=== PATIENT | female | born 1990 | race Caucasian/White ===

== ENCOUNTER 2022-02-05 21:15 | Inpatient (IN) ==
[2022-02-05 21:34] VITALS: BMI 51.3
[2022-02-05 21:51] LABS: BILIRUBIN,URINE NEGATIVE (NEGATIVE); BLOOD/HEMOGLOBIN,URINE NEGATIVE (NEGATIVE); GLUCOSE, URINE NEGATIVE (NEGATIVE); KETONES,URINE NEGATIVE (NEGATIVE); LEUKOCYTE ESTERASE ,URINE 2+ (NEGATIVE); NITRITES,URINE NEGATIVE (NEGATIVE); PROTEIN,URINE NEGATIVE (NEGATIVE); UROBILINOGEN,URINE NORMAL (NORMAL)
[2022-02-05] MEDS ORDERED: ANCEF VIAL 1 GRAM IVP ONE (21:51)
[2022-02-05] MEDS ORDERED: LR 1,000 ML IV 1,000 ML IV ONE ×3 (21:51→22:36)
[2022-02-05] MEDS ORDERED: TORADOL 30 MG VIAL IVP PRN (21:55)
[2022-02-05] MEDS ORDERED: BENADRYL INJ 50 MG VIAL IVP PRN (21:55)
[2022-02-05] MEDS ORDERED: PEPCID 20 MG VIAL IVP ONE (21:55)
[2022-02-05] MEDS ORDERED: ZOFRAN INJ 4 MG VIAL IVP PRN (21:55)
[2022-02-05 21:56] LABS: COLOR,URINE YELLOW (YELLOW)
[2022-02-05] MEDS ORDERED: REGLAN INJ 10 MG VIAL IVP PRN (21:56)
[2022-02-05] MEDS ORDERED: D5 1/2 NS 1,000 ML 1,000 ML IV SCH (22:00)
[2022-02-05 22:04] LABS: APPEARANCE,URINE CLEAR (CLEAR); BACTERIA,URINE TRACE /HPF (NEGATIVE); RBC,URINE 0-2 /HPF (0-3); SQUAMOUS EPITHELIAL CELL,UR MODERATE /HPF (NEGATIVE)
[2022-02-05 22:05] LABS: AMNISURE ROM TEST NO MEMBRANES RUPTURE (NO RUPTURE)
[2022-02-05] MEDS ORDERED: MARCAINE SPINAL ONE (22:22)
[2022-02-05] MEDS ORDERED: ZOFRAN INJ 4 MG VIAL ONE (22:22)
[2022-02-05] MEDS ORDERED: REGLAN INJ 10 MG VIAL ONE (22:22)
[2022-02-05] MEDS ORDERED: PEPCID 20 MG VIAL ONE (22:22)
[2022-02-05] MEDS ORDERED: XYLOCAINE 2 % (PLAIN) ONE (22:23)
[2022-02-05] MEDS ORDERED: NS 100 ML IV 100 ML ONE (22:23)
[2022-02-05] MEDS ORDERED: PITOCIN ONE (22:23)
[2022-02-05] MEDS ORDERED: EPHEDRINE SULFATE INJ ONE (22:23)
[2022-02-05] MEDS ORDERED: ANCEF VIAL 1 GRAM ONE (22:23)
[2022-02-05] MEDS ORDERED: DILAUDID INJ ONE (22:27)
[2022-02-05] MEDS ORDERED: OFIRMEV IV 1000 MG VIAL 1,000 MG/100 ML VIAL IV ONE (23:27)
[2022-02-05] MEDS ORDERED: VERSED ONE (23:54)
[2022-02-05] MEDS ORDERED: DIPRIVAN VIAL 20 ML ONE (23:57)
[2022-02-06] MEDS ORDERED: ZOFRAN INJ 4 MG VIAL IVP PRN ×2 (01:07→05:26)
[2022-02-06 05:14] LABS: BASOPHILS # (AUTO) 0.3 X10^3/uL (0.0-0.1); HEMATOCRIT 33.3 % (36.0-47.0); HEMOGLOBIN 11.3 g/dL (12.0-16.0); LYMPHOCYTES # (AUTO) 3.7 X10^3/uL (1.3-2.9); LYMPHOCYTES % (AUTO) 12.9 % (21.0-51.0); MEAN CORPUSCULAR HEMOGLOBIN 31.8 pg (27.0-34.0); MEAN CORPUSCULAR HGB CONC 33.9 g/dL (33.0-35.0); MEAN CORPUSCULAR VOLUME 93.6 fL (80.0-100.0); MEAN PLATELET VOLUME 9.2 fL (7.4-11.0); MONOCYTES # (AUTO) 1.2 x10^3/uL (0.3-0.8); MONOCYTES % (AUTO) 4.2 % (0.0-13.0); NEUTROPHILS # (AUTO) 23.7 x10^3/uL (2.2-4.8); NEUTROPHILS % (AUTO) 81.9 % (42.0-75.0); RED BLOOD COUNT 3.55 X10^6/uL (3.5-5.4); RED CELL DISTRIBUTION WIDTH 13.7 % (11.6-16.5)
[2022-02-06 05:21] LABS: BLOOD UREA NITROGEN 7 mg/dL (7-18); CALCIUM 8.2 mg/dL (8.5-10.1); CARBON DIOXIDE 24.3 mmol/L (21-32); CHLORIDE 103 mmol/L (98-107); CREATININE 0.61 mg/dL (0.55-1.02); SODIUM 138 mmol/L (136-145); eGFR NON BLACK RACES > 60 (>60)
[2022-02-06] MEDS ORDERED: TORADOL 30 MG VIAL IVP PRN (05:26)
[2022-02-06] MEDS ORDERED: MYLICON TAB 80 MG CHEW PO PRN (05:26)
[2022-02-06] MEDS ORDERED: NARCAN INJ IVP PRN (05:26)
[2022-02-06] MEDS ORDERED: ADACEL or BOOSTRIX TDaP VACCINE IM ONE (05:26)
[2022-02-06] MEDS ORDERED: PERCOCET TAB 5/325 MG PO PRN (05:26)
[2022-02-06] MEDS ORDERED: D5 1/2 NS 1,000 ML 1,000 ML with PITOCIN 20 UNITS IV SCH ×2 (05:26)
[2022-02-06] MEDS ORDERED: BENADRYL INJ 50 MG VIAL IVP PRN (05:26)
[2022-02-06 05:29] LABS: WHITE BLOOD COUNT 28.9 X10^3/uL (3.6-10.0)
[2022-02-06 05:39] LABS: BAND NEUTROPHILS % 2 % (0-10); PLATELET MORPHOLOGY COMMENT NORMAL (NORMAL)
[2022-02-06] MEDS ORDERED: MOTRIN TAB 800 MG PO PRN (08:48)
[2022-02-06] MEDS ORDERED: PRENATAL PLUS PO SCH (09:00)
[2022-02-06] MEDS: COLACE CAP 100 MG PO SCH ×2 (09:09→20:39)
[2022-02-06] MEDS: BACTROBAN TOPICAL OINT TOP SCH ×2 (15:50→21:08)
[2022-02-06] MEDS: PERCOCET TAB 5/325 MG PO PRN (20:39)
[2022-02-07] MEDS: PERCOCET TAB 5/325 MG PO PRN ×2 (02:30→07:00)
[2022-02-07] MEDS: BACTROBAN TOPICAL OINT TOP SCH (06:55)
[2022-02-07 08:12] VITALS: BP 139/80
[2022-02-07] MEDS: COLACE CAP 100 MG PO SCH (08:26)
== END 2022-02-07 09:50 | disposition home or self-care (01) | DRG 784 ==
LOC: ER 21:16 → LD 21:51 → MED/SURG 02-06 01:37
PROVIDERS: ADMIT Specialist; ATTEND Specialist
DX: O47.1 False labor at or after 37 completed weeks of gestation; O99.891 Other specified diseases and conditions complicating pregnancy; Z3A.39 39 weeks gestation of pregnancy; Z30.2 Encounter for sterilization; Z37.0 Single live birth